=== PATIENT | female | born 1980 | race African-American/Black ===

== ENCOUNTER 2019-09-16 14:47 | Emergency (ER) | payer BC, MEDICAID ==
[~2019-09-16] VITALS: Ht 167.6 cm; Wt 85.0 kg
[2019-09-16] MEDS ORDERED: ACETAMINOPHEN 325MG TABLET PO ONE (15:15)
[2019-09-16 16:08] LABS: PROTHROMBIN TIME 10.7 sec (9.6-11.0)
[2019-09-16 16:09] LABS: BASOPHILS % 0.9 % (0.0-2.0); CHLORIDE 108 mEq/L (98-107); EOSINOPHILS % 1.6 % (0.0-5.0); HEMATOCRIT. 37.9 % (36.0-48.0); HEMOGLOBIN. 13.3 g/dL (12.0-16.0); LYMPHOCYTES % 21.8 % (20.0-50.0); MEAN CORPUSCULAR HEMOGLOBIN 30.4 pg (28.0-32.0); MEAN CORPUSCULAR VOLUME 86.6 fL (81.0-99.0); MEAN PLATELET VOLUME 8.3 fl (7.4-10.4); MONOCYTES % 13.1 % (2.0-8.0); NEUTROPHILS % 62.6 % (40.0-76.0); PLATELET 221 x1000/uL (130-400); RED BLOOD CELL COUNT 4.38 mill/uL (4.2-5.4); RED CELL DISTRIBUTION WIDTH 14.3 % (11.6-14.6)
[2019-09-16 17:00] VITALS: BP 133/85
== END 2019-09-16 18:36 | disposition home or self-care (01) ==
LOC: ER 15:05
DX: R22.0 Localized swelling, mass and lump, head (principal); K02.9 Dental caries, unspecified; F31.9 Bipolar disorder, unspecified
CPT/HCPCS: 36415; 70486; 80053; 81025; 85025; 99284